=== PATIENT | male | born 1935 | race Caucasian/White ===

== ENCOUNTER → 2016-12-23 11:09 | Outpatient (CLI) | payer BC ==
[2015-09-26 10:44] VITALS: BMI 29.9
[~2016-12-23 11:09] MED LIST: ACETAMINOPHEN325 MG PO; BUMEX 1 MG TAB1 MG PO; COLACE100 MG PO; COZAAR50 MG PO; CUBICIN500 MG IV; DOXYCYCLINE HY100 M2 PO; ELIQUIS5 MG PO; FLOMAX0.4 MG PO; HYDROCODON-ACE1 EAC7 PO; K-DUR20 MEQ PO; MUCINEX DM ER1 EAC1 PO; PRADAXA150 MG PO; PRESERVISION; PROSCAR5 MG PO; RESTORIL15 MG PO; ROCEPHIN 1 GM IN1 GM IV; XARELTO15 MG PO
== END | disposition home or self-care (01) ==
LOC: D.CT 11:09
DX: R31.9 Hematuria, unspecified (principal)

== ENCOUNTER 2017-04-21 05:05 | Day surgery (SDC) | payer BC ==
[2017-04-17 12:32] LABS: HEMATOCRIT 44.6 % (42.0-54.0); HEMOGLOBIN 14.9 g/dL (13.5-17.5); MCH 31.3 pg (26.0-34.0); MCHC 33.4 g/dL (31.0-37.0); MCV 93.7 fL (80.0-100.0); MEAN PLATELET VOLUME 10.5 fL (7.4-10.4); RBC 4.76 10x6/uL (4.20-6.10); WBC 7.8 10x3/uL (4.8-10.8)
[2017-04-17 12:36] LABS: ANION GAP 14.8 mmol/L (8-16); CALCIUM 8.9 mg/dL (8.5-10.1); CREATININE - SERUM 1.2 mg/dL (0.6-1.3); POTASSIUM - SERUM 3.8 mmol/L (3.5-5.1)
[2017-04-17 13:00] LABS: APTT 32.7 SECONDS (22.8-39.4); INR 1.26 (0.85-1.17); PROTIME 15.4 SECONDS (11.6-15.0)
[~2017-04-21] VITALS: Ht 190.5 cm; Wt 121.6 kg
--- NOTE | ~2017-04-21 | HP ---
PATIENT: MALLIKA TAMAYO MEDICAL RECORD: [id number] ACCOUNT: [id number] LOCATION:[place] : 33 ADMISSION DATE: 04/21/17 HISTORY AND PHYSICAL EXAMINATION CHIEF COMPLAINT: Drainage. HISTORY: The patient has had intermittent drainage from his umbilicus. It seems like the drainage will stop and it will heal over and then he will develop drainage again. I think he likely has a sinus tract and likely there is a foreign body at the base of that sinus tract. I am going to plan for excisional debridement of the umbilicus. ALLERGIES: AMIODARONE AND VANCOMYCIN WELL TIKOSYN. MEDICINES: Amoxicillin, Tylenol, Norvasc, Eliquis, Bumex, Colace, doxycycline, and Proscar. SOCIAL HISTORY: Nonsmoker. REVIEW OF SYSTEMS: No fainting or seizure. No rheumatic fever. No diabetes. No thyroid problems. No respiratory disease. The patient is not short of breath. PAST MEDICAL AND SURGICAL HISTORY: History of paroxysmal atrial fibrillation, history of pacemaker placement and then removal, constipation, and congestive heart failure. PHYSICAL EXAMINATION: GENERAL: The patient does not appear acutely ill. He does not appear chronically ill. VITAL SIGNS: Reviewed. HEAD: External ears appear normal. EYES: Extraocular movements are intact. NECK: Trachea is midline. CHEST: No intercostal retractions. PULMONARY: Nonlabored. No stridor. ABDOMEN: Drainage from the umbilicus. IMPRESSION: Umbilical drainage via infected sinus. PLAN: Exploration of the umbilicus with excisional debridement. TRANSINT:[id number] Voice Confirmation ID: [id number] DOCUMENT ID: [id number] HISTORY AND PHYSICAL [id number] MALLIKA TAMAYO ROBERT MD at 1131 CC: MCKENNA NÚÑEZ MD, Hyun MORGAN and LINO QUINTERO [id number] DICTATION DATE: 04/21/17 1203 TROUBLE LINEMAN: 04/21/17 1224 [facility] 04/21/17 [facility] [address] [place] [address]
--- NOTE | ~2017-04-21 | OP ---
PATIENT NAME: MALLIKA TAMAYO MEDICAL RECORD: [id number] :33 LOCATION:D.OPS ADMISSION DATE: SURGEON: PRASHANT NORIEGA MD DATE OF OPERATION: 04/21/2017 PREOPERATIVE DIAGNOSIS: Intermittently draining infected sinus of the umbilicus. POSTOPERATIVE DIAGNOSES: Intermittently draining infected sinus of the umbilicus with an intraabdominal gallstone underneath the umbilicus and cephalad to it which was the nidus for the infection. PROCEDURE: Excisional debridement of umbilicus with exploratory laparotomy. The tissues debrided were debrided sharply and they consisted of skin, subcutaneous tissue, sinus tract, fascia as well as some of the underlying umbilicus and a single gallstone, which was intra-abdominal and directly beneath and at the apex of the draining sinus. SURGEON: Prashant Noriega MD [place] TOWER LOADER: None. BLOOD LOSS: Minimal. ANESTHESIA: General. COMPLICATIONS: None. OPERATIVE COURSE: The patient was conveyed to the operating room electively on 04/21/2017. General anesthesia was induced by the anesthesia staff. The abdomen was sterilely prepped and draped. I then incised within the umbilicus on either side of the draining sinus. I continued this cephalad. I had to extend my skin incision cephalad as well. I excised any granulation tissue or any sinus material that I could identify. I removed some suture material, which did not appear to be the nidus for the infection. I entered the peritoneal cavity sharply. Some infected and inflamed appearing fascia was excised. I continued my dissection of the sinus tract out and this terminated at a small gallstone, which was intra-abdominal and beneath the sinus tract. The gallstone was removed. I then ran portions of the small bowel. All the small bowel that I was able to run and manipulate appeared to be healthy and without any enterocutaneous fistula. I irrigated with hydrogen peroxide. Additional attenuated fascia was excised as well as some inflamed appearing fascia. I then closed the fascia with multiple interrupted horizontal mattress #1 Vicryls. The subdermis was approximated with interrupted 3-0 Vicryls. The skin was approximated with multiple interrupted 4-0 Vicryl Kinney. A sterile dressing was applied. The patient was then extubated and conveyed to post-anesthesia care unit where he was in stable condition. He will be dismissed home on hydrocodone. He is already on oral antibiotics at home. I am going to place him on Colace as well in case the hydrocodone causes him constipation. TRANSINT:[id number] Voice Confirmation ID: [id number] DOCUMENT ID: [id number] OPERATIVE REPORT [id number] MALLIKA TAMAYO ROBERT MD at 1131 CC: MCKENNA NÚÑEZ MD, Hyun MORGAN and LINO QUINTERO [id number] DICTATION DATE: 04/21/17 1214 DENTAL ASSISTANT INSTRUCTOR: 04/21/17 1238 [facility] 04/21/17 [address] [place] [address]
[2017-04-21] MEDS ORDERED: SYNTHROID25 MCG PO (08:27)
[2017-04-21] MEDS ORDERED: NORVASC2.5 MG PO (08:29)
[2017-04-21] MEDS ORDERED: CRANBERRY EXTRACT PO (08:30)
[2017-04-21] MEDS ORDERED: VIBRAMYCIN 100100 MG PO (08:31)
[2017-04-21] MEDS ORDERED: PRESERVISION AR1 CAP PO (08:33)
[2017-04-21] MEDS ORDERED: MUCINEX DM ER1 EAC1 PO (08:34)
[2017-04-21] MEDS ORDERED: AMOXICILLIN500 M1 PO (08:35)
[2017-04-21 09:19] VITALS: BP 127/67; Ht 190.5 cm; Wt 121.6 kg
== END 2017-04-21 14:30 | disposition home or self-care (01) ==
LOC: D.OPS 05:05 → D.PAN 09:30 → D.OPS 14:30
PROVIDERS: Anesthesiology
DX: L08.9 Local infection of the skin and subcutaneous tissue, unspecified (principal); I50.9 Heart failure, unspecified; E03.9 Hypothyroidism, unspecified; I48.0 Paroxysmal atrial fibrillation; Z01.812 Encounter for preprocedural laboratory examination

== ENCOUNTER 2017-05-07 11:42 | Emergency (ER) | payer MEDICARE, BC ==
[2017-04-21 09:19] VITALS: BMI 29.3
[~2017-05-07 11:42] MED LIST changes: +AMOXICILLIN500 M1 PO; +CRANBERRY EXTRACT PO; +NORVASC2.5 MG PO; +PRESERVISION AR1 CAP PO; +SYNTHROID25 MCG PO; +VIBRAMYCIN 100100 MG PO
[2017-05-07 12:47] LABS: ALBUMIN 3.3 g/dL (3.4-5.0); ANION GAP 12.7 mmol/L (8-16); CALCIUM 8.9 mg/dL (8.5-10.1); CARBON DIOXIDE 30.4 mmol/L (21.0-32.0); CREATININE - SERUM 1.2 mg/dL (0.6-1.3); POTASSIUM - SERUM 4.1 mmol/L (3.5-5.1); PROTEIN - SERUM 6.9 g/dL (6.4-8.2)
[2017-05-07 13:18] LABS: BASOPHILS 1.2 % (0-2); EOSINOPHILS 10.6 % (0-7); HEMATOCRIT 44.3 % (42.0-54.0); HEMOGLOBIN 14.4 g/dL (13.5-17.5); IMMATURE GRANULOCYTES 0.3 % (0-5); LYMPHOCYTES 24.2 % (15-50); MCH 30.8 pg (26.0-34.0); MCHC 32.5 g/dL (31.0-37.0); MCV 94.9 fL (80.0-100.0); MEAN PLATELET VOLUME 10.4 fL (7.4-10.4); MONOCYTES 12.3 % (2-11); NEUTROPHILS 51.4 % (40-80); RBC 4.67 10x6/uL (4.20-6.10); RDW 14.6 % (11.5-14.5); WBC 8.9 10x3/uL (4.8-10.8)
[2017-05-07 13:19] LABS: PLATELET COUNT 358 10x3/uL (130-400)
[2017-05-07 14:19] LABS: APPEARANCE CLEAR (CLEAR); COLOR YELLOW (YELLOW)
[2017-05-07 14:20] LABS: BILIRUBIN NEGATIVE (NEGATIVE); GLUCOSE NEGATIVE (NEGATIVE); KETONE NEGATIVE (NEGATIVE); NITRITE NEGATIVE (NEGATIVE); PROTEIN NEGATIVE (NEGATIVE); UROBILINOGEN NORMAL (NORMAL)
[2017-05-07 14:24] LABS: BACTERIA FEW /hpf (NONE SEEN); EPITHELIAL CELLS OCC /hpf (0-5); MUCUS <1+ /lpf (NONE SEEN); RED CELLS - URINE OCC /hpf (0-5); WHITE CELLS - URINE OCC /hpf (0-5)
== END 2017-05-07 18:40 | disposition home or self-care (01) ==
LOC: D.ER 11:42
PROVIDERS: Emergency Medicine
DX: G89.18 Other acute postprocedural pain (principal); L76.32 Postprocedural hematoma of skin and subcutaneous tissue following other procedure

== ENCOUNTER → 2017-06-16 13:57 | Outpatient (CLI) | payer MEDICARE, BC ==
[2017-04-21 09:19] VITALS: BMI 29.3
== END | disposition home or self-care (01) ==
LOC: D.MRI 13:57
DX: M48.061 Spinal stenosis, lumbar region without neurogenic claudication (principal); M54.31 Sciatica, right side

== ENCOUNTER 2019-09-13 14:57 | Emergency (ER) | payer MEDICARE, BC ==
[~2019-09-13] VITALS: Ht 190.5 cm; Wt 108.2 kg
[2019-09-13 15:01] VITALS: Ht 190.5 cm; Wt 108.2 kg
[2019-09-13 16:24] LABS: BILIRUBIN NEGATIVE (NEGATIVE); GLUCOSE NEGATIVE (NEGATIVE); KETONE NEGATIVE (NEGATIVE); NITRITE NEGATIVE (NEGATIVE); UROBILINOGEN NORMAL (NORMAL)
[2019-09-13 16:25] LABS: BACTERIA FEW /hpf (NEGATIVE); RED CELLS - URINE OCC /hpf (0-5); WHITE CELLS - URINE 0-5 /hpf (NEGATIVE)
[2019-09-13 16:40] VITALS: BP 141/82
== END 2019-09-13 17:25 | disposition home or self-care (01) ==
LOC: D.ER 14:57
PROVIDERS: Family Medicine
DX: N40.1 Benign prostatic hyperplasia with lower urinary tract symptoms (principal); R33.8 Other retention of urine; I10 Essential (primary) hypertension; Z95.0 Presence of cardiac pacemaker